=== PATIENT | male | born 1950 | race Caucasian/White ===

== ENCOUNTER → 2019-10-07 08:15 | Outpatient (CLI) | payer MEDICARE, OTHER, SELFPAY ==
--- NOTE | 2019-10-07 | DI.MRI.S_ITS ---
PROCEDURE: MR LUMBAR SPINE WO CON INDICATIONS: Radiculopathy, lumbar region TECHNIQUE: Noncontrast sagittal T1 spin echo and T2 fast echo, sagittal STIR, axial T1 and T2 fast spin echo through the lumbar spine. In cases with scoliosis, additional coronal T2 fast spin echo may be performed. COMPARISON: None. FINDINGS: Image quality: Excellent. Alignment and Curvature: There is trace anterolisthesis of C4 on C5. Bone Marrow: Marrow is of normal overall signal. No acute vertebral body compression fractures. Spinal Cord: Conus medullaris terminates at the L2 level. Visualized cord demonstrates normal signal and size. Paraspinous Soft Tissues: No paravertebral masses. Discs: Minimal desiccation is present throughout the lumbar spine. L1-L2: No disc bulge, spinal stenosis or foraminal narrowing. Mild facet and ligamentum flavum hypertrophy. L2-L3: Minimal disc bulge with small foraminal protrusions. No spinal stenosis. No foraminal narrowing. Facet and ligamentum flavum hypertrophy are present. L3-L4: Mild disc bulge with minimal canal narrowing. Mild to moderate right and minimal left foraminal narrowing with facet and ligamentum flavum hypertrophy. Mild epidural lipomatosis. L4-L5: Mild disc bulge with minimal canal narrowing. Mild to moderate bilateral foraminal narrowing with facet and ligamentum flavum hypertrophy. L5-S1: Mild disc bulge without spinal stenosis. Minimal narrowing to the right subarticular recess. Facet hypertrophy is present. IMPRESSION: 1. Multilevel disc bulges. 2. Foraminal narrowing most notable at L3-4 and L4-5 secondary to facet arthropathy. Dictated by: Pretty Sawant M.D. on 10/07/2019 at 9:47 Approved by: Pretty Sawant M.D. on 10/07/2019 at 10:49
== END ==
PROVIDERS: Referring Provider Psychiatry & Neurology Neurology; Visit Provider Psychiatry & Neurology Neurology
DX: M51.16 Intervertebral disc disorders with radiculopathy, lumbar region (principal); M51.17 Intervertebral disc disorders with radiculopathy, lumbosacral region; M48.061 Spinal stenosis, lumbar region without neurogenic claudication
CPT/HCPCS: 72148